=== PATIENT | male | born 1990 | race Hispanic/Latino ===

== ENCOUNTER 2021-12-24 08:18 | Emergency (ER) | payer OTHER ==
[~2021-12-24] VITALS: Ht 180.3 cm; Wt 98.9 kg
[2021-12-24] MEDS ORDERED: KETOROLAC TROMETHAMINE 30 MG/ML VIAL IV STA (09:07)
[2021-12-24] MEDS ORDERED: ASPIRIN 325 MG TAB PO ONE (09:15)
[2021-12-24] MEDS ORDERED: KETOROLAC TROMETHAMINE 30 MG/ML VIAL ONE (09:16)
== END 2021-12-24 10:34 | disposition home or self-care (01) ==
LOC: FSED 08:28
DX: R07.89 Other chest pain (principal); M94.0 Chondrocostal junction syndrome [Tietze]
CPT/HCPCS: 71046; 80053; 81003; 82553; 84484; 85025; 93005; 96374; 99284; J1885